=== PATIENT | female | born 1995 | race Caucasian/White ===

== ENCOUNTER 2025-02-14 08:45 | Outpatient (REF) | payer SELFPAY ==
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
--- OUTSIDE RECORDS SUMMARY | 2025-02-13 09:00 | XMS_ITS ---
Author Organization [facility] [place] Address [address] [place] [address] Care Team Providers Care Teleradiologist Name Role Phone Pratik Rowan Primary Care Provider Allergies Allergen (clinical drug ingredient) Drug/Non Drug Allergy documented on EMR Reaction Allergy Type Onset Date Status Penicillin Unknown Drug Allergy Active REASON FOR VISIT SELF PAY- wants lung xray, Coughing up mucus every morning, green drainage- lymph nodes swollen in the morning, at night and in the morning has sore throat, Was smoking marijuana daily- has stopped completely recently, Has had laryngitis for over 30 days Medications Medication SIG (Take, Route, Fr equency, Duration) Notes Start Date End Date Status predniSONE 20 MG 2 tablets Orally Onc e a day for 5 days 02/13/2025 Active levoFLOXacin 500 MG 1 tablet Orally Once a day for 10 day(s) 02/13/2025 Active Social History Tobacco Use: Social History Observation Description Date Details (start date - stop date) Never Smoker NA - NA Tobacco Control (Standard) Question Answer Notes Tobacco use: Nonsmoker Vital Signs Weight 139.0 lbs 02/13/2025 Height 70 in 02/13/2025 Blood pressure systolic 112 mm Hg 02/14/20 25 Blood pressure diastolic 70 mm Hg 025 BMI 19.94 kg/m2 02/13/2025 Encounters Encounter Location Date Provider Diagnosis [facility] [address] [place] [address] 02/13/2025 Pratik Harpal Acute bronchitis, unspecified organism J20.9 Assessments Encounter Date Diagnosis (ICD Code) Assessment Notes Treatment Notes Treatment Clinical Notes Section Notes 02/13/2025 Acute bronchitis, unspecified organism (ICD-10 - J20.9) Rest and drink more liquids, especially water. You may use a humidifier or vaporizer to help keep the drainage moist. Wqkp-qfm-jagslge Nasal Saline may help the stuffy and runny nose. Use Ibuprofen and or Tylenol as needed for fever, chills, body aches or pain. Children 5 years old should not be given ckgw-mpf-fzhvvch cough and cold medications such as guaifenesin and dextromethorphan. If you're over age 5, you may try secs-hje-yzsgwrs cold medications such as guaifenesin and dextromethorphan, or multi-symptom cold reliever such as Dayquil to help reduce the symptoms. Antibiotics have been prescribed. You should take these until completed and follow the directions. Antibiotics can sometimes cause upset stomach, and in rare cases, serious allergic reactions or serious gastrointestinal problems. If you start having severe abdominal pain, severe vomiting, or bloody diarrhea, you should be reevaluated by your physician or urgent care immediately. Follow up with your Primary Care Provider or return to clinic if symptoms do not improve within 3-5 days. If you develop severe symptoms such as shortness of breath, repeated vomiting, coughing up blood, or chest pain you should go to the emergency room or call 911 Plan Of Treatment Medication Medication Name Sig Start Date Stop Date Notes predniSONE 20 MG 2 tablets Orally Once a day for 5 days levoFLOXacin 500 MG 1 tablet Orally Once a day for 10 day(s) 02/13/2025 Treatment Notes Assessment Notes Acute bronchitis, unspecified organism R est and drink more liquids, especially water. You may use a humidifier or vaporizer to help keep the drainage moist. Sklc-teg-xoraqql Nasal Saline may help the stuffy and runny nose. Use Ibuprofen and or Tylenol as needed for fever, chills, body aches or pain. Children 5 years old should not be given jgmq-xnz-jjewska cough and cold medications such as guaifenesin and dextromethorphan. If you're over age 5, you may try yqox-sbf-rpaikbw cold medications such as guaifenesin and dextromethorphan, or multi-symptom cold reliever such as Dayquil to help reduce the symptoms. Antibiotics have been prescribed. You should take these until completed and follow the directions. Antibiotics can sometimes cause upset stomach, and in rare cases, serious allergic reactions or serious gastrointestinal problems. If you start having severe abdominal pain, severe vomiting, or bloody diarrhea, you should be reevaluated by your physician or urgent care immediately. Follow up with your Primary Care Provider or return to clinic if symptoms do not improve within 3-5 days. If you develop severe symptoms such as shortness of breath, repeated vomiting, coughing up blood, or chest pain you should go to the emergency room or call 911 Pending Test Test Name Order Date CULTURE SPUTUM 02/13/2025 SPUTUM GRAM STAIN 02/13/2025 Next Appt Details Follow Up: 3-5 days if not i mproving, Reason: Progress Notes * Galilea MARSHALL JDOB:[birth year] (29 yo F)Acc No.[id number]:02/13/2025 Progress Note Patient: Galilea KOENIG Provider: Lexie Rowan ([facility])MD :1995 A ge:29 Y S ex:Female Date:02/13/2025 Address:[facility] [address], [address] Check In:01:07 PM ESTCheck O ut:01:39 PM EST Subjective: * Chief Complaints: * S ELF PAY- wants lung xrayCoughing up mucus every morning, green drainage- lymph nodes swollen in the morning, at night and in the morning has sore throatWas smoking marijuana daily- has stopped completely recentlyHas had laryngitis for over 30 days * HPI: G eneral: was smoking marijuana - stoppped now - has Green sputum. B ronchitis: The patient complains of symptoms of bronchitis. The symptoms have been present for 1-2 days. The symptoms are moderate. The patient has not been exposed to sick contacts. Symptomatic treatment has included OTC medication. Associated symptoms include nasal congestion, postnasal drainage, congested ears, cough, fever, chills, body aches. * ROS: E NT: Ear pain d enies. H oarseness d enies. � C ardiovascular: Edema d enies. P alpitations d enies. � R espiratory: Comments S ee HPI for details. G astrointestinal: Abdominal pain d enies. D iarrhea d enies. N ausea d enies. S kin: Rash d enies. * Active Problem List N94.6 Dysmenorrhea, unspec ified Modified On:10/04/2022/U Status:confirmed R10.2 Pelvic and perineal pain Modified On:10/04/2022/U Status:confirmed J32.9 Sinusitis Modified On:01/27/2025/U Status:confirmed * Medical History: * Surgical History: D enies Past Surgical History * Hospitalization/Major Diagno stic Procedure: D enies Past Hospitalization * Family History: F ather: alive. M other: alive. S ister(s): alive. 4 sister(s) . . * Social History: T obacco Use: T obacco Control (Standard) T obacco use: N onsmoker * Medications: D iscontinuedAzithromycin 250 MG Tablet as directed Orally daily , Notes to Pharmacist: take 2 tablets po on first day than 1 tablet po days 2-5Benzonatate 200 MG Capsule 1 capsule as needed Orally Three times a day Polymyxin B-Trimethoprim 17132-3.1 UNIT/ML Solution 1 drop into affected eye Ophthalmic Four times a day Medication List reviewed and reconciled with the patientDiscontinued Azithromycin 250 MG Tablet as directed Orally daily , Notes to Pharmacist: take 2 tablets po on first day than 1 tablet po days 2-5Discontinued Benzonatate 200 MG Capsule 1 capsule as needed Orally Three times a day Discontinued Polymyxin B-Trimethoprim 49544-8.1 UNIT/ML Solution 1 drop into affected eye Ophthalmic Four times a day Medication List reviewed and reconciled with the patient * Allergies: P enicillinno[Allergies Verified] Objective: * Vitals: W t:139.0lbs, Ht: 70 in, BP:112/70mm Hg, BMI:19.94Index, Ht-cm: 177.8 cm, Wt-k.05 kg. * Examination: G eneral Examination: GENERAL APPEARANCE: in no acute distress. EYES: EOMI. EARS: auditory canal clear, middle ear effusion noted.� NOSE: clear discharge, turbinates pale and swollen. ORAL CAVITY: mucosa moist. THROAT: no erythema, post-nasal drainage noted. NECK: neck supple, no thyromegaly. LYMPH NODES: n o cervical adenopathy. LUNGS: unlabored, clear to auscultation bilaterally. CARDIO: n o murmurs, regular rate and rhythm. ABDOMEN: bowel sounds present, no organomegaly . � Assessment: * Assessment: 1. A cute bronchitis, unspecified organism - J20.9 (Primary) Plan: * Treatment: * Procedure Codes: * Preventive Medicine: Screenings/Counseling: B MT ACTION PLAN Below Normal BMI Follow-up D ietary management education, guidance, and counseling * Follow Up: 3 -5 days if not improving * * Sign off status: Completed Visit Status: C HK (Check Out) true * Provider: Lexie Rowan ([facility])MD Date: 0 02/13/2025 Generated for Printi ng/Faausting/eTransmitting on: 02/19/2025 09:40 AM EDT History and Physical Notes * HPI (History of Present Illness) Category Sub-Category Detail Notes Category Not es General was smoking marijuana - stoppped now - has Green sputum Examination Category Sub-Category Detail Notes Category Not es General Examination GENERAL APPEARANCE: in no acute di stress EYES: EOMI EARS: auditory canal clear , middle ear effusion noted NOSE: clear discharge, tur binates pale and swollen THROAT: no erythema, post-na ector drainage noted NECK: neck supple, no thyr omegaly CARDIO: no murmurs, regular rate and rhythm LUNGS: unlabored, clear to auscultation bilaterally ABDOMEN: bowel sounds present , no organomegaly LYMPH NODES: no cervical adenopat hy ORAL CAVITY: mucosa moist
--- OUTSIDE RECORDS SUMMARY | 2025-02-13 09:39 | XMS_ITS ---
Author Organization [facility] [place] Address [address] [place] [address] Care Team Providers Care Wrecking Crane Engine Operator Name Role Phone Pratik Rowan Primary Care Provider REASON FOR VISIT SELF PAY Encounters Encounter Location Date Provider Diagnosis [address] [address] 02/13/2025 Pratik Rowan Plan Of Treatment No Information Progress Notes * Galilea MARSHALL JDOB:[birth year] (29 yo F)Acc No.[id number]:02/13/2025 Patient: Melissa Galilea WILKINSON :1995 A ge:29 Y S ex:Female Address:[address], [address] , [place], [address] * true * Date: Generated for Patel lazo/Isaac/eTransmitting on: 0 02/19/2025 09:41 AM EDT
--- OUTSIDE RECORDS SUMMARY | 2025-02-13 12:41 | XMS_ITS ---
Author Organization [facility] in [place] Address [address] [place] [address] Care Team Providers Care Appraiser Timber Name Role Phone Pratik Rowan Primary Care Provider REASON FOR VISIT lump Encounters Encounter Location Date Provider Diagnosis [address] [address] 02/13/2025 Pratik Rowan Plan Of Treatment No Information Progress Notes * Galilea MARSHALL JDOB:[birth year] (29 yo F)Acc No.[id number]:02/13/2025 Patient: Melissa Galilea WILKINSON :1995 A ge:29 Y S ex:Female Address:[address], [address] , [place], [address] * true * Date: Generated for Patel lazo/Isaac/eTransmitting on: 0 02/19/2025 09:40 AM EDT
--- OUTSIDE RECORDS SUMMARY | 2025-02-19 09:41 | XMS_ITS | Patient Health Record ---
Author Organization [facility] Address [address] [place] [address] Care Team Providers Care Loom Fixer Helper Name Role Phone Abdoul Alexis Unavailable [phone] Reason For Referral No Information Encounters Encounter Location Date Provider Diagnosis [facility] [address] [place] [address] 06/03/2024 Abdoul Alexis Plan Of Treatment No Information
--- OUTSIDE RECORDS SUMMARY | 2025-02-19 09:41 | XMS_ITS | Patient Health Record ---
Author Organization [facility] in [place] Address [address] [place] [address] Care Team Providers Care Stile Ripsaw Operator Name Role Phone Pratik Rowan Primary Care Provider [phone] Linda Rob Unavailable [phone] Allergies Allergen (clinical drug ingredient) Drug/Non Drug Allergy documented on EMR Reaction Allergy Type Onset Date Status Penicillin Unknown Drug Allergy Active Results Component Value Reference Range Notes UA (Urinalysis, Dipstix only - w/o micro) (Not yet reviewed by provider) Interpretation: Performing Lab: Notes/Report: GLUCOSE - 0 - 133 MG/DL ALBUMIN - NEG - NEG MG/DL BILIRUBIN - NEG - NEG MG/DL SPECIFIC GRAVITY 1.015 1.001 - 1.035 KETONES - NEG - NEG MG/DL BLOOD, UR + PH, UR 7 5 - 9 UROBILNOGEN - 0.2 - 1 MG/DL NITRITE + NEG - NEG ESTERASE (CELI) + NEG - NEG MG/DL Reason For Referral No Information Medications Medication SIG (Take, Route, Fr equency, [...] (Standard) Question Answer Notes Tobacco use: Nonsmoker AUDIT-C (Standard) Question Answer Notes Did you have a drink contain ing alcohol in the past year? Yes How often did you have a dri nk containing alcohol in the past year? Monthly or less (1 point) How many drinks did you have on a typical day when you were drinking in the past year? 1 or 2 drinks (0 point) How often did you have six o r more drinks on one occasion in the past year? 2 to 4 times a month (2 points) Points 3 Interpretation Positive Problems Problem Type SNOMED Code ICD Code Onset Dates Problem Status W/U Status Risk Notes Problem Dysmenorrhea (224303906) Dysmenorrhea, unspecified (N94.6) Active confirmed Problem Pelvic and perineal pain (247143248) Pelvic and perineal pain (R10.2) Active confirmed Problem Sinusitis (96489634) Sinusitis (J32.9) Active confirmed Vital Signs Blood pressure diastolic 70 mm Hg 02/13/2025 Height 70 in 02/13/2025 Blood pressure systolic 112 mm Hg 02/13/2025 Weight 139.0 lbs 02/13/2025 BMI 19.94 kg/m2 02/13/2025 Encounters Encounter Location Date Provider Diagnosis [facility] [place] [address] [place] [address] 11/11/2024 Pratik Rowan [facility] [place] [address] [place] [address] 11/26/2024 [facility] [address] [place] [address] 02/13/2025 [facility] [address] [place] [address] 02/13/2025 Pratik [facility] [address] [place] [address] 01/27/2025 Linda Liane Conjunctivitis H10.9 and Bronchitis J40 [facility] [place] [address] [place] [address] 02/13/2025 Pratik Rowan Acute bronchitis, unspecified organism J20.9 [facility] [address] [place] [address] 11/11/2024 Pratik Rowan Urine frequency R35. 0 Assessments Encounter Date Diagnosis (ICD Code) Assessment Notes Treatment Notes Treatment Clinical Notes Section Notes 11/11/2024 Urine frequency (ICD-10 - R35.0) 01/27/2025 Conjunctivitis (ICD-10 - H10.9) 01/27/2025 Bronchitis (ICD-10 - J40) if not improving, try zpack rest , push fluids 02/13/2025 Acute bronchitis, unspecified organism (ICD-10 - J20.9) Rest and drink more liquids, especially water. You may use a humidifier or vaporizer to help keep the drainage moist. Xzdq-sfb-wateldx Nasal Saline may help the stuffy and runny nose. Use Ibuprofen and or Tylenol as needed for fever, chills, body aches or pain. Children 5 years old should not be given fibk-qgo-gpgnzrc cough and cold medications such as guaifenesin and dextromethorphan. If you're over age 5, you may try gkqb-ruv-pvcqxgr cold medications such as guaifenesin and dextromethorphan, [...] room or call 911 Plan Of Treatment Pending Test Test Name Order Date UA (Urinalysis, Dipstix only - w/o micro ) 11/11/2024 CULTURE SPUTUM 02/13/2025 SPUTUM GRAM STAIN 02/13/2025
--- OUTSIDE RECORDS SUMMARY | 2025-02-19 09:41 | XMS_ITS | Clinical Summary ---
Author Organization [facility] Address [address] [place] [address] Care Team Providers Care Turbine Engine Assembler Name Role Phone Unavailable Primary Care Provider Unavailabl e Medications cariprazine (VRAYLAR) 1.5 mg capsuleIndicati ons:Bipolar 2 disorder (HCC) Take 1 capsule by mouth once daily. 30 capsule 02/22/2021 Active Active Problems Problem Noted Date Diagnosed Date Bipolar 2 disorder 01/31/2021 Generalized anxiety disorder 01/31/2021 Social History Tobacco Use Types Packs/Day Years Used Date Smoking Tobacco: Never Assessed Area Deprivation Index Answer Date Hollis rded National Score (1-100), lower number is lower ri sk Not on file 03/16/2021 State Score (1-10), lower number is lower risk N ot on file 03/16/2021 Data from: https://www.neighborhoodatlas.medicine.[facility].edu/. Last address used for calculation Not on file 03/16/2021 Comments Unknown Sex and Gender Information Value Date Recorded Sex Assigned at Not on file Legal Sex Female 4:56 PM EDT Gender Identity Not on file Sexual Orientation Not on file Plan of Treatment Health Maintenance Due Date Last Done Comments DTaP,Tdap,Td Vaccine (5 - Tdap) 10/30/2007 04/13/1998, 05/09/1997, 03/07/1997, Additional history exists Anxiety Screening 2014 Depression Screening 2014 HIV Screening 2014 Hepatitis C Screening 2014 Cervical Cancer Screening 2017 Influenza Vaccine (#1) 2025 Hepatitis B Vaccine Completed 12/17/1997, 01/03/1997, 1995
--- OUTSIDE RECORDS SUMMARY | 2025-02-19 09:41 | XMS_ITS | Clinical Summary ---
Author Organization [facility] Address [address] [place] [address] Care Team Providers Care Walking Dragline Oiler Name Role Phone Gonzalez Rowan MD Primary Care Provider [phone] Allergies Active Allergy Reactions Criticality Noted Date Comments Penicillin G Unknown 01/03/2023 Medications norgestimate-ethin yl estradiol (Sprintec 28) 0.25-35 MG-MCG tabletIndications: Encounter for surveillance of contraceptive pills Take 1 tablet by mouth Daily 84 tablet 3 5 08/07/19 26 Active Active Problems Problem Noted Date Diagnosed Date Abnormal uterine bleeding 01/03/2023 Family History Medical History Relation Name Comments Breast cancer Father's Sister Nicole No Known Problems Maternal Grandfather Glaucoma Mother Sydney Hypertension Mother Sydney Thyroid disease Mother Sydney Diabetes Paternal Grandmother Joanna Ovarian cysts Sister 1 sister Relation Name Status Comments Father Alive Father's Sister Nicole Maternal Grandfather Maternal Grandmother Alive Mother Sydney Alive Paternal Grandfather Alive Paternal Grandmother Joanna Alive Sister 4 sisters Social History Tobacco Use Types Packs/Day Years Used Date Smoking Tobacco: Never Smokeless Tobacco: Never Tobacco Cessation:Counseling Given: Not Answered Alcohol Use Standard Drinks/Week Comments Yes 3 (1 standard drink = 0.6 oz pur e alcohol) caffeine intake: none Education Answer Date Recorded What is the highest level of school you have completed or the highest degree you have received? Some college, no degree 01/03/2023 Comments No Sex and Gender Information Value Date Recorded Sex Assigned at Female 11/30/2023 6:32 PM EDT Legal Sex Female 11:08 PM EDT Gender Identity Female 11/30/2023 6:32 PM EDT Sexual Orientation Not on file Last Filed Vital Signs Vital Sign Reading Time Taken Comments Blood Pressure 110/70 08/07/2024 9:56 AM EST Pulse - - Temperature - - Respiratory Rate - - Oxygen Saturation - - Inhaled Oxygen Concentration - - Weight 69.9 kg (154 lb) 08/07/2024 9:56 AM EST Height 174 cm (5' 8.5 ) 06/20/2022 12:00 PM EST Body Mass Index 23.08 06/20/2022 12:00 PM EST Plan of Treatment Upcoming Encounters Date Type Department Care Team (Late st Contact Info) Description 07/14/2025 9:15 AM EST Office Visit [facility] [address] [place] [address] [phone] Michelle Quinn, DO [address] [phone] Care Teams Walking Dragline Oiler Relationship Specialty Start Date End Date Gonzalez Rowan MD PCP - General Family Medicine 12/05/23
--- OUTSIDE RECORDS SUMMARY | 2025-02-19 09:41 | XMS_ITS | Encounter Summary ---
Author Organization [facility] Address [address] [place] [address] Care Team Providers Care Human Resources Associate Name Role Phone Gonzalez Rowan MD Primary Care Provider [phone] Encounter Details Date Type Department Care Team (Late st Contact Info) Description 01/04/2023 Abstract [facility] [address] [place] [phone] Michelle Quinn DO [address] [phone] Social History Tobacco Use Types Packs/Day Years Used Date Smoking Tobacco: Never Smokeless Tobacco: Never Alcohol Use Standard Drinks/Week Comments Never 0 (1 standard drink = 0.6 oz pur e alcohol) caffeine intake: none Education Answer Date Recorded What is the highest level of school you have completed or the highest degree you have received? Some college, no degree 01/03/2023 Comments Unknown Sex and Gender Information Value Date Recorded Sex Assigned at Female 11/30/2023 6:32 PM EDT Legal Sex Female 11:08 PM EDT Gender Identity Female 11/30/2023 6:32 PM EDT Sexual Orientation Not on file documented as of this encounter Plan of Treatment Upcoming Encounters Date Type Department Care Team (Late st Contact Info) Description 07/14/2025 9:15 AM EST Office Visit [facility] [address] [facility] D Medical [address] [phone] Nataprawira, Michelle J, DO [address] [phone] documented as of this encounter Visit Diagnoses Not on filedocumented in this encounter Care Teams Human Resources Associate Relationship Specialty Start Date End Date Gonzalez Rowan MD PCP - General Family Medicine 12/05/23 documented as of this encounter
--- OUTSIDE RECORDS SUMMARY | 2025-02-19 09:41 | XMS_ITS | Encounter Summary ---
Author Organization [facility] Address [address] [place] [address] Care Team Providers Care Airfreight Loading Supervisor Name Role Phone Gonzalez Rowan MD Primary Care Provider [phone] Encounter Details Date Type Department Care Team (Late Contact Info) Description 07/09/2024 Orders Only [facility] [address] [facility] [address] [phone] Jane Pena MA Social History Tobacco Use Types Packs/Day Years Used Date Smoking Tobacco: Never Smokeless Tobacco: Never Alcohol Use Standard Drinks/Week Comments Yes 3 [...] EST Office Visit [facility] [address] [facility] [address] [phone] Michelle Quinn, DO [address] [phone] documented as of this encounter Visit Diagnoses Not on filedocumented in this encounter Care Teams Airfreight Loading Supervisor Relationship Specialty Start Date End Date Gonzalez Rowan MD PCP - General Family Medicine 12/05/23 documented as of this encounter
== END 2025-02-14 08:46 | disposition home or self-care (01) ==
LOC: LAB 08:45
PROVIDERS: PCP Family Medicine; Visit Provider Family Medicine
DX: J20.9 Acute bronchitis, unspecified (principal)
CPT/HCPCS: 87070; 87205